=== PATIENT | male | born 1985 | race Two or more races ===

== ENCOUNTER 2022-09-15 09:39 | Emergency (ER) | payer MEDICAID, OTHER ==
[~2022-09-15] VITALS: Ht 170.2 cm; Wt 60.0 kg
[2022-09-15] MEDS ORDERED: HALOPERIDOL LACTATE 5 MG/ML INJ VIAL IM ONE (14:15)
[2022-09-15] MEDS ORDERED: LORazepam 2MG/ML-1ML VIAL IM ONE (14:37)
[2022-09-15] MEDS ORDERED: diphenhdrAMINE HCL 50 MG/1 ML VL IM ONE (14:37)
[2022-09-15] MEDS ORDERED: diphenhdrAMINE HCL 50 MG/1 ML VL ONE (14:38)
[2022-09-15] MEDS ORDERED: LORazepam 2MG/ML-1ML VIAL ONE (14:39)
[2022-09-15 15:35] LABS: Salicylate < 1.7 mg/dL (2.8-20.0)
[2022-09-15 15:38] LABS: Amphetamine Screen, Urine NEGATIVE (NEGATIVE); Barbiturate Scree,Urine NEGATIVE (NEGATIVE); Benzodiazephine Screen, Urine NEGATIVE (NEGATIVE); Cannabinoid Screen, Urine NEGATIVE (NEGATIVE); Cocaine Screen, Urine NEGATIVE (NEGATIVE); Opiate Scree,Urine NEGATIVE (NEGATIVE); Phencyclidine Screen, Urine NEGATIVE (NEGATIVE)
[2022-09-15 15:49] LABS: Acetaminophen < 2.0 ug/mL (10-30)
[2022-09-15] MEDS ORDERED: SODIUM CHLORIDE 0.9% 1,000 ML IV ONE ×2 (17:15)
[2022-09-15] MEDS ORDERED: THIAMINE 100mg/ml INJ (200mg/2ml VIAL) IV ONE (17:15)
[2022-09-16 19:50] VITALS: BP 128/81
== END 2022-09-16 20:57 | disposition home or self-care (01) ==
LOC: ER 09:39 → EDBD 09:39 → ER 09-16 20:57
DX: F20.9 Schizophrenia, unspecified (principal); R41.82 Altered mental status, unspecified; Z20.822 Contact with and (suspected) exposure to COVID-19
CPT/HCPCS: 36415; 70450; 80307; 80320; 80329; 87426; 96361; 96372; 96374; 99285; J1200; J1630; J2060; J3411; J7030